=== PATIENT | male | born 1945 | race Caucasian/White ===

== ENCOUNTER 2022-07-18 11:09 | Outpatient (CLI) | payer MEDICARE, BC | END 2022-07-18 23:59 | disposition critical access hospital (66) | LOC: EMS 11:09 | DX: R55 Syncope and collapse (principal); S01.01XA Laceration without foreign body of scalp, initial encounter; W18.39XA Other fall on same level, initial encounter; Y93.89 Activity, other specified; Y92.39 Other specified sports and athletic area as the place of occurrence of the external cause | CPT/HCPCS: A0425; A0427 ==

== ENCOUNTER 2022-07-18 11:35 | Emergency (ER) | payer MEDICARE, BC ==
--- NOTE | 2022-07-18 12:11 | ED Physician Documentation ---
PD HPI HEAD INJURY - Stated complaint Stated Complaint: HEAD INJ - History obtained from History obtained from: Patient - History of Present Illness Mechanism of head injury: Fell (had syncopal episode and fell backward, striking head on hard flo. He states he felt lightheaded as he was getting [facility], after working out for an hour or more. He then remembers having Medic taking his BP. reports about 6-8 minutes of dazed. 1-2 unconscious.) Where head injury occurred: Other ([facility]) Timing - onset: How many minutes ago (30), Today Location of injury: Back Review of Systems Constitutional: denies: Fever, Chills Nose: denies: Rhinorrhea / runny nose, Congestion Throat: denies: Sore throat Cardiac: denies: Chest pain / pressure, Pedal edema, Calf pain Respiratory: denies: Dyspnea, Cough GI: denies: Vomiting, Diarrhea Neurologic: denies: Focal weakness, Numbness PD PAST MEDICAL HISTORY - Past Medical History Cardiovascular: Hypertension, Other (he states resting heart rate is typically in 50s. ) Respiratory: None Neuro: None Endocrine/Autoimmune: None - Allergies Allergies/Adverse Reactions: Allergies Allergy/AdvReac Type Severity Reaction Status Date / Time No Known Drug Allergies Allergy Verified 07/18/22 12:46 PD ED PE NORMAL - Vitals Vital signs reviewed: Yes - General General: Alert and oriented X 3, Well developed/nourished, Other (mild blood in back of head hair. bandaged without saturation of the gauze. ) - HEENT HEENT: No: Atraumatic (laceration occiput scalp. ) - Neck Neck: Supple, no meningeal sign, No bony TTP (but some tender in paracervical muscle on right. ), No adenopathy - Cardiac Cardiac: RRR, No murmur - Respiratory Respiratory: Clear bilaterally, Other (no chestwall tenderness. ) - Abdomen Abdomen: Soft, Non tender - Back Back: No CVA TTP, No spinal TTP - Derm Derm: Normal color, Warm and dry - Extremities Extremities: Normal ROM s pain, No edema, No calf tenderness / cord - Neuro Neuro: Alert and oriented X 3, No motor deficit, No sensory deficit, Normal speech Results - Vitals Vitals: Vital Signs - 24 hr 07/18/22 07/18/22 07/18/22 12:16 12:19 13:13 Temperature 36.6 C Heart Rate 51 L 45 L 48 L Respiratory 18 18 18 Rate Blood Pressure 130/64 124/65 124/60 O2 Saturation 100 100 100 07/18/22 07/18/22 13:35 14:46 Temperature Heart Rate 67 52 L Respiratory 18 20 Rate Blood Pressure 138/64 H 123/59 L O2 Saturation 100 99 Oxygen O2 Source Room air - EKG (time done) 11:41 Rate: Rate (enter#) (51) Rhythm: Sinus bradycardia (which patient states is usual for him. ) - Labs Labs: Laboratory Tests 07/18/22 07/18/22 12:40 12:40 WBC 9.3 RBC 4.22 L Hgb 12.8 L Hct 39.3 L MCV 93.1 MCH 30.3 MCHC 32.6 RDW 14.0 Plt Count 140 MPV 11.0 Neut # (Auto) 7.7 H Lymph # (Auto) 1.0 L [place] # (Auto) 0.5 Eos # (Auto) 0.1 Baso # (Auto) 0.0 Absolute Nucleated RBC 0.00 Nucleated RBC % 0.0 Sodium 142 Potassium 4.0 Chloride 105 Carbon Dioxide 26 Anion Gap 11.0 BUN 23 H Creatinine 1.1 Estimated GFR (MDRD) 65 L Glucose 152 H Calcium 10.4 H Magnesium 2.5 Total Bilirubin 1.5 H AST 18 ALT 21 Alkaline Phosphatase 60 Total Protein 7.4 Albumin 4.1 Globulin 3.3 Albumin/Globulin Ratio 1.2 Lipase 36 - Rads (name of study) head cT Radiology: Prelim report reviewed, EMP read indepedently (no acute bleeding nor acute findings. ), See rad report cervical spine cT Radiology: Prelim report reviewed (no fractures. ), EMP read indepedently, See rad report Procedures - Laceration (location) occipital scalp Length in cm: 3 Wound type: Linear, Into subcut fat, Clean Anesthesia: Lidocaine 1% Wound preparation: Irrigated copiously NS (by fuel cell technician), Wound explored, To the base Skin layer closure: Nylon, Running, Size #-0 - enter number (4), Sutures - enter # (8) Other: Patient tolerated well, No complications, Neurovascular intact PD Medical Decision Making - ED course Complexity details: reviewed results, re-evaluated patient (he is alert and conversant. having some headache and was given IV toradol for that. He declined opioid meds. ), considered differential (seems likely vasovagal syncope with working out, no breakfast and then was in hot tub longer than usual, with syncop[e on getting up and out. Consider mild concussive effect as well with longer LOC 6-8 minutes. ), d/w patient ED course: has not had exertional dyspnea nor chest pain. Worked out this monring and thenw as in hot tub. This is regular routine. he had not had food nor fluids this moring. He felt okay at that point. got out of hot tub. says they were in it longer than usual and felt very warm. He got lightheaded and then fainted. struck back of head. was out and then confused for 6-8 minutes perhaps, not really remembering until first responders were there. He is alert since then. Seems likely vasovagal. However some element of likely concussive as was out a bit longer than expected. Has lac on back of head. Due to the unguarded fall and possible concussive too, I did get CT head and neck that werre subseuqnetly okay. He had been removed from backboard soon after er arrival, and then collar removed as well. After CT, with feeling okay to move head and neck, I then examined and cleaned and sutured back of head. He is alert and conversant. No focal deficits. Departure - Departure Disposition: 01 Home, Self Care Clinical Impression: Syncope and collapse Head contusion Qualifiers: Encounter type: initial encounter Contusion of head detail: scalp Qualified Code(s): S00.03XA - Contusion of scalp, initial encounter Scalp laceration Qualifiers: Encounter type: initial encounter Qualified Code(s): S01.01XA - Laceration without foreign body of scalp, initial encounter Mild concussion Qualifiers: Encounter type: initial encounter Loss of consciousness presence/duration: with LOC of 30 min or less Qualified Code(s): S06.0X1A - Concussion with loss of consciousness of 30 minutes or less, initial encounter Condition: Stable Record reviewed to determine appropriate education?: Yes Instructions: ED Concussion, ED Syncope Vasovagal Comments: It is okay to wash and shower. Clean off the wound twice a day with soap and water, or peroxide and water. Apply some antibiotic ointment to it to keep it moist. Also to watch for signs of infection such as purulence, redness or increasing pain. Return to your primary care or the ER at the specified time for suture removal. Suture removal 8 to 10 days. Tylenol and/or ibuprofen as needed for headache or pains 3-4 times daily. Your fainting episode seems most likely related to dilation of the blood vessels and subsequent inadequate blood flow to the head as you got up from the hot tub. This would be termed a vasovagal fainting. However it does sound like you were unconscious longer than you would think after that, and with the injury of the scalp, I am inclined to think you also have a mild concussion. Avoid vigorous activity both physical and visual over the next 2 to 3 days. No regular exercise but light walking or such as okay until you are feeling back to normal as far as cognition, concentration, dizziness etc. For some people this can even be a few weeks. Recheck if not improved well over the next several days to a week. Your CT scans of the head and neck did not show any bleeding/fractures,/tumors etc. Your basic blood tests are good without any signs of anemia, blood sugar problems, electrolyte problem. Your heart monitor here is showing a normal rhythm and normal blood pressure. Discharge Date/Time: 07/18/22 14:48
[2022-07-18] MEDS ORDERED: SODIUM CHLORIDE 0.9% 500 ML IV STA (12:25)
[2022-07-18] MEDS ORDERED: KETOROLAC 15 MG/ML VIAL IVP STA (12:27)
[2022-07-18 12:50] LABS: BASOPHILS % (AUTO) 0.1 %; EOSINOPHILS # (AUTO) 0.1 10^3/uL (0.0-0.7); EOSINOPHILS % (AUTO) 0.6 %; HCT - HEMATOCRIT 39.3 % (42.0-52.0); HGB - HEMOGLOBIN 12.8 g/dL (14.0-18.0); LYMPHOCYTES % (AUTO) 11.1 %; MEAN CORPUSCULAR HEMOGLOBIN 30.3 pg (27.0-31.0); MEAN CORPUSCULAR HGB CONC 32.6 g/dL (32.0-36.0); MEAN CORPUSCULAR VOLUME 93.1 fL (80.0-94.0); MONOCYTES # (AUTO) 0.5 10^3/uL (0.0-1.0); MONOCYTES % (AUTO) 4.9 %; NEUTROPHILS # (AUTO) 7.7 10^3/uL (1.5-6.6); NEUTROPHILS % (AUTO) 82.9 %; PLT - PLATELET COUNT 140 10^3/uL (130-450); RED BLOOD COUNT 4.22 10^6/uL (4.70-6.10); WHITE BLOOD COUNT 9.3 x10^3/uL (4.8-10.8)
[2022-07-18 13:03] LABS: ALBUMIN 4.1 g/dL (3.2-5.5); ALBUMIN/GLOBULIN RATIO 1.2 (1.0-2.2); BILIRUBIN,TOTAL 1.5 mg/dL (0.2-1.0); CALCIUM 10.4 mg/dL (8.5-10.3); CREATININE 1.1 mg/dL (0.6-1.2); MAGNESIUM 2.5 mg/dL (1.7-2.8); TOTAL PROTEIN 7.4 g/dL (6.7-8.2)
--- NOTE | 2022-07-18 13:25 | CT Report ---
PROCEDURE: HEAD WO INDICATIONS: syncope with fall back, struck head/LOC TECHNIQUE: Noncontrast 4.5 mm thick angled axial sections acquired from the foramen magnum to the vertex. For r adiation dose reduction, the following was used: automated exposure control, adjustment of mA and/or kV according to patient size. COMPARISON: Correlation is made with the accompanying cervical spine CT, 07/18/2022. FINDINGS: Image quality: There is streak artifact seen through the skull base. CSF spaces: Basal cisterns are patent. No extra-axial fluid collections. There is mild ex vacuo dil atation of the posterior horn of the right lateral ventricle. Brain: No midline shift. No intracranial masses or hemorrhage. Bush-white matter interface is norm al. Focal volume loss is seen involving the right occipital lobe with encephalomalacia. Skull and face: There is scalp hematoma seen on the left posteriorly. No associated calvarial fractu re is seen. Calvarium and visualized facial bones are intact, without suspicious lesions. Sinuses: Visualized sinuses and mastoids are clear. IMPRESSION: Left posterior scalp hematoma, without an associated fracture. No intracranial hemorrhage is seen. No significant intracranial abnormality is seen. Remote right occipital lobe infarction, with volume loss and encephalomalacia. Reviewed by: Harshad Becker MD on 07/18/2022 12:24 PM [facility] Approved by: Harshad Becker MD on 07/18/2022 12:24 PM [facility] Station ID: [id number]
--- NOTE | 2022-07-18 13:39 | CT Report ---
PROCEDURE: CERVICAL SPINE WO INDICATIONS: syncope with head/neck injury TECHNIQUE: Noncontrast 3 mm thick sections acquired from the skull base to the T4 level. Sagittal and coronal r eformats were then constructed. For radiation dose reduction, the following was used: automated exp osure control, adjustment of mA and/or kV according to patient size. COMPARISON: None. FINDINGS: Image quality: Excellent. Bones: No fractures or dislocations. Visualized superior ribs are intact. Soft tissues: Prevertebral soft tissues are normal in thickness. No paravertebral hematomas. No ap ical pneumothoraces. IMPRESSION: No acute cervical spine injury demonstrated. Reviewed by: Jose Goldman MD on 07/18/2022 1:38 PM PST Approved by: Jose Goldman MD on 07/18/2022 1:38 PM PST Station ID: [id number]
[2022-07-18] MEDS ORDERED: MUPIROCIN 2% OINT 1 GM TOP STA (14:21)
[2022-07-18 14:47] VITALS: BP 123/59
== END 2022-07-18 14:48 | disposition home or self-care (01) ==
LOC: ED 11:35
DX: S06.0X1A Concussion with loss of consciousness of 30 minutes or less, initial encounter (principal); S01.01XA Laceration without foreign body of scalp, initial encounter; W19.XXXA Unspecified fall, initial encounter; I10 Essential (primary) hypertension
CPT/HCPCS: 12002; 36415; 80053; 83690; 83735; 85025; 93005; 99284